=== PATIENT | female | born 1995 | race Hispanic/Latino ===

== ENCOUNTER 2018-07-24 02:34 | Emergency (ER) | payer OTHER ==
[2018-07-24] MEDS ORDERED: NA CHLORIDE 0.9% 1,000 ML ONE (03:04)
[2018-07-24 03:20] LABS: Absolute Lymphocytes (CBC) 2.9 K/uL (0.7-4.9); Absolute Monocytes 0.9 K/uL (0.1-1.3); Basophils % 0.6 % (0-1.3); Eosinophils % 1.6 % (0-4.4); Hematocrit 38.9 % (36.0-45.0); Lymphocytes % 26.6 % (15.3-44.8); MPV 8.1 fL (7.6-11.3); Monocytes % 7.9 % (3.3-12.3); RBC Red Blood Cell Count 4.23 M/uL (3.86-4.86)
[2018-07-24 04:11] LABS: BUN Blood Urea Nitrogen 8 mg/dL (7-18); Bicarbonate 25 mmol/L (21-32); Glucose Level 142 mg/dL (74-106); HCG, Quantitative 39428 mIU/mL (1-3); Potassium 3.2 mmol/L (3.5-5.1); Sodium Level 141 mmol/L (136-145)
[2018-07-24] MEDS ORDERED: NS KCL 20MEQ 1,000 ML IV ONE (04:42)
--- NOTE | 2018-07-24 05:36 | EDPHYS ---
Physician Documentation [facility] Name: Rere Kat Age: 22 yrs Sex: Female : 1995 Arrival Date: 07/24/2018 Time: 02:35 Bed 5 Private MD: ED Physician Benson Acosta HPI: 07/24 02:45 This 22 yrs old Female presents to ER via EMS with complaints of miscarriage. magnolia 02:45 The patient presents with pelvic pain, vaginal bleeding that is. Onset: The magnolia symptoms/episode began/occurred just prior to arrival, this morning. Modifying factors: The symptoms are alleviated by nothing, the symptoms are aggravated by nothing. Associated signs and symptoms: The patient has no apparent associated signs or symptoms. Severity of symptoms: At their worst the symptoms were mild, in the emergency department the symptoms are unchanged. The patient presents to the emergency department with vaginal bleeding. The estimated gestational age is 8 weeks. 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 - Social history:: Smoking status: Patient/guardian denies using tobacco. - Ebola Screening: : No symptoms or risks identified at this time. - Family history:: not pertinent. ROS: 02:45 Constitutional: Negative for fever, chills, and weight loss, Eyes: Negative for injury, magnolia pain, redness, and discharge, ENT: Negative for injury, pain, and discharge, Neck: Negative for injury, pain, and swelling, Cardiovascular: Negative for chest pain, palpitations, and edema, Respiratory: Negative for shortness of breath, cough, wheezing, and pleuritic chest pain, Back: Negative for injury and pain, : Negative for injury, bleeding, discharge, and swelling, MS/Extremity: Negative for injury and deformity, Skin: Negative for injury, rash, and discoloration, Neuro: Negative for headache, weakness, numbness, tingling, and seizure, Psych: Negative for depression, anxiety, suicide ideation, homicidal ideation, and hallucinations, Allergy/Immunology: Negative for hives, rash, and allergies, Endocrine: Negative for neck swelling, polydipsia, polyuria, polyphagia, and marked weight changes, Hematologic/Lymphatic: Negative for swollen nodes, abnormal bleeding, and unusual bruising. 02:45 Abdomen/GI: Positive for abdominal pain, abdominal cramps. Exam: 02:45 Constitutional: This is a well developed, well nourished patient who is awake, alert, magnolia and in no acute distress. Head/Face: Normocephalic, atraumatic. Eyes: Pupils equal round and reactive to light, extra-ocular motions intact. Lids and lashes normal. Conjunctiva and sclera are non-icteric and not injected. Cornea within normal limits. Periorbital areas with no swelling, redness, or edema. ENT: Nares patent. No nasal discharge, no septal abnormalities noted. Tympanic membranes are normal and external auditory canals are clear. Oropharynx with no redness, swelling, or masses, exudates, or evidence of obstruction, uvula midline. Mucous membranes moist. Neck: Trachea midline, no thyromegaly or masses palpated, and no cervical lymphadenopathy. Supple, full range of motion without nuchal rigidity, or vertebral point tenderness. No Meningismus. Chest/axilla: Normal chest wall appearance and motion. Nontender with no deformity. No lesions are appreciated. Cardiovascular: Regular rate and rhythm with a normal S1 and S2. No gallops, murmurs, or rubs. Normal PMI, no JVD. No pulse deficits. Respiratory: Lungs have equal breath sounds bilaterally, clear to auscultation and percussion. No rales, rhonchi or wheezes noted. No increased work of breathing, no retractions or nasal flaring. Back: No spinal tenderness. No costovertebral tenderness. Full range of motion. Skin: Warm, dry with normal turgor. Normal color with no rashes, no lesions, and no evidence of cellulitis. MS/ Extremity: Pulses equal, no cyanosis. Neurovascular intact. Full, normal range of motion. Neuro: Awake and alert, GCS 15, oriented to person, place, time, and situation. Cranial nerves II-XII grossly intact. Motor strength 5/5 in all extremities. Sensory grossly intact. Cerebellar exam normal. Normal gait. Psych: Awake, alert, with orientation to person, place and time. Behavior, mood, and affect are within normal limits. 02:45 Abdomen/GI: Inspection: abdomen appears normal, Bowel sounds: normal, Palpation: moderate abdominal tenderness, in the suprapubic area, Liver: no appreciated palpable abnormalities, Hernia: not appreciated. Vital Signs: 02:39 BP 114 / 79; Pulse 90; Resp 16 S; Temp 98.1(O); Pulse Ox 100% on R/A; Weight 63.5 kg bb (R); Height 5 ft. 3 in. (160.02 cm) (R); Pain 10/10; 03:56 BP 115 / 79; Pulse 79; Resp 16 S; Pulse Ox 100% on R/A; bb 04:39 BP 120 / 72; Pulse 98; Resp 18 S; Pulse Ox 100% on R/A; bb 05:28 BP 107 / 66; Pulse 100; Resp 16 S; Temp 97.7(TE); Pulse Ox 100% on R/A; bb 06:19 BP 100 / 59; Pulse 89; Resp 18 S; Pulse Ox 100% on R/A; bb 02:39 Body Mass Index 24.80 (63.50 kg, 160.02 cm) MDM: 02:37 Patient medically screened. [facility] 02:49 Data reviewed: vital signs, nurses notes, lab test result(s), radiologic studies, [facility] ultrasound. 07/24 02:44 Order name: Quantitative Hcg; Complete Time: 04:17 [facility] 07/24 02:44 Order name: Abo/rh Typing; Complete Time: 04:01 [facility] 07/24 02:44 Order name: Basic Metabolic Panel; Complete Time: 04:17 [facility] 07/24 02:44 Order name: CBC with Diff; Complete Time: 04:01 [facility] 07/24 04:42 Order name: 1St Trimest Single 1St Fetus EDMS 07/24 02:44 Order name: IV Saline Lock; Complete Time: 02:51 [facility] 07/24 02:44 Order name: Labs collected and sent; Complete Time: 02:51 [facility] 07/24 02:44 Order name: NPO; Complete Time: 02:51 [facility] 07/24 04:48 Order name: Pelvic Exam Setup; Complete Time: 04:54 [facility] Administered Medications: 02:52 Drug: NS 0.9% 1000 ml Route: IV; Rate: 1 bolus; Site: left antecubital; bb 04:55 Follow up: IV Status: Completed infusion; IV Intake: 1000ml bb 04:55 Drug: NS 0.9% with KCl 20 mEq/L 1000 ml Route: IV; Rate: 250 ml/hr; Site: left bb antecubital; 06:35 Follow up: IV Status: Order to discontinue infusion; IV Intake: 400ml bb 05:39 CANCELLED (Other Intervention Used): Rocephin - (cefTRIAXone) 1 grams IVPB once over 30 bb mins; (mix in 50 mL NS) 05:51 Drug: Doxycycline 100 mg Route: PO; bb 06:19 Follow up: Response: No adverse reaction bb 05:52 Drug: METHERgine 0.2 mg Route: IM; Site: right gluteus; bb 06:19 Follow up: Response: No adverse reaction bb 05:52 Drug: Rocephin 1 grams Route: IV; Rate: calculated rate; Site: left antecubital; bb 05:57 Follow up: IV Status: Completed infusion; IV Intake: 10ml bb Disposition: 07/24/18 05:34 Discharged to Home. Impression: Pelvic and perineal pain, Hypokalemia, (Induced) termination of with other complications - vaginal bleeding. - Condition is Fair. - Discharge Instructions: Incomplete Miscarriage, Pelvic Pain, Female, Vaginal Bleeding During , First Trimester, First Trimester of , [id number], First Trimester of , Pelvic Rest. - Prescriptions for Vitamin 27- 0.8 mg Oral Tablet - take 1 tablet by ORAL route once daily; 30 tablet. Methergine 0.2 mg Oral tablet - take 1 tablet by ORAL route every 6 hours; 5 tablet. Doxycycline Hyclate 100 mg Oral Tablet - take 1 tablet by ORAL route every 12 hours; 20 tablet. Tylenol- Codeine #3 300-30 mg Oral Tablet - take 2 tablets by ORAL route every 6 hours As needed; 20 tablet. - Medication Reconciliation Form, Thank You Letter, Antibiotic Education, Prescription Opioid Use form. - Follow up: Private Physician; When: 2 - 3 days; Reason: Recheck today's complaints, Continuance of care, Re-evaluation by your physician. Follow up: Leilani Esparza; When: 2 - 3 days; Reason: Recheck today's complaints, Continuance of care, Re-evaluation by your physician. - Problem is new. - Symptoms have improved. Signatures: Dispatcher [employer] Benson Collier MD MD cha Ballard, Brenda, RN RN bb Corrections: (The following items were deleted from the chart) 04:30 02:44 Urine Test ordered. [facility] 04:42 02:44 Transvaginal Ob+US.RAD.BRZ ordered. [facility] EDMA 05:39 05:29 Rocephin - (cefTRIAXone) 1 grams IVPB once over 30 mins; (mix in 50 mL NS) bb ordered. [facility] 06:40 05:34 07/24/2018 05:34 Discharged to Home. Impression: Pelvic and perineal pain; bb Hypokalemia; (Induced) termination of with other complications - vaginal bleeding. Condition is Fair. Discharge Instructions: Pelvic Pain, Female, Threatened Miscarriage, Vaginal Bleeding During , First Trimester, First Trimester of , [id number], First Trimester of , Threatened Miscarriage, [id number], Pelvic Rest. Prescriptions for Vitamin 27-0.8 mg Oral Tablet - take 1 tablet by ORAL route once daily; 30 tablet. and Forms are Medication Reconciliation Form, Thank You Letter, Antibiotic Education, Prescription Opioid Use. Follow up: Private Physician; When: 2 - 3 days; Reason: Recheck today's complaints, Continuance of care, Re-evaluation by your physician. Follow up: Mini Rekhi; When: 2 - 3 days; Reason: Recheck today's complaints, Continuance of care, Re-evaluation by your physician. Problem is new. Symptoms have improved. magnolia
--- NOTE | 2018-07-24 05:36 | ER ---
Nurse's Notes [facility] Name: Rere Kat Age: 22 yrs Sex: Female : 1995 Arrival Date: 07/24/2018 Time: 02:35 Bed 5 Private MD: Diagnosis: Pelvic and perineal pain;Hypokalemia;(Induced) termination of with other complications-vaginal bleeding Presentation: 07/24 02:37 Presenting complaint: EMS states: they were toned out for report of pt having severe bb abdominal pain and vaginal bleeding after taking 2nd dose of misoprostol given to her by [facility] pt last menstrual cycle was 06/01/2018. Transition of care: patient was not received from another setting of care. Onset of symptoms was July 24, 2018. Risk Assessment: Do you want to hurt yourself or someone else? Patient reports no desire to harm self or others. Initial Sepsis Screen: Does the patient meet any 2 criteria? No. Patient's initial sepsis screen is negative. Does the patient have a suspected source of infection? No. Patient's initial sepsis screen is negative. Care prior to arrival: None. 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 - Social history:: Smoking status: Patient/guardian denies using tobacco. - Ebola Screening: : No symptoms or risks identified at this time. - Family history:: not pertinent. Screenin:45 Abuse screen: Denies threats or abuse. Nutritional screening: No deficits noted. bb Tuberculosis screening: No symptoms or risk factors identified. Fall Risk Secondary diagnosis (15 points) impaired mobility, IV access (20 points). Ambulatory Aid- None/Bed Rest/Nurse Assist (0 pts). Gait- Weak (10 pts.). Total Dove Fall Scale indicates High Risk Score (45 or more points). Fall prevention measures have been instituted. Side Rails Up X 2 As available patient and family educated on Fall Prevention Program and Strategies. Assessment: 02:45 General: Appears uncomfortable, ill, Behavior is flat, listless, Reports severe bb abdominal cramping and vaginal bleeding. Pain: Complains of pain in abdomen Pain currently is 10 out of 10 on a pain scale. Neuro: Level of Consciousness is awake, obeys commands, listless, Oriented to person, place, time, situation. Cardiovascular: No deficits noted. Respiratory: Respiratory effort is even, unlabored, Respiratory pattern is regular. GI: Abdomen is round Reports lower abdominal pain, upper abdominal pain, cramping. : No signs and/or symptoms were reported regarding the genitourinary system. Derm: Skin is clammy, Skin is pale, Skin temperature is warm. Musculoskeletal: Circulation, motion, and sensation intact. 03:34 Reassessment: pt had large bowel movement of diarrhea with small amount of blood. bb 03:54 Reassessment: Patient and/or family updated on plan of care and expected duration. Pain bb level reassessed. Patient is alert, oriented x 3, equal unlabored respirations, skin warm/dry/pink. pt states she is feeling a little better, awaiting Ultrasound. 04:36 Reassessment: ultrasound at bedside, pt had small amount bowel movement with chucho fc bright red blood. 05:16 Reassessment: Dr Acosta at bedside for pelvic exam accompanied by Ana hartman.bb 06:18 Reassessment: Patient is alert, oriented x 3, equal unlabored respirations, skin bb warm/dry/pink. pt resting quietly, IV site intact, patent with fluids infusing awaiting ride home prior to discharge pt has called her mother and she is on the way. 06:38 Reassessment: Patient is alert, oriented x 3, equal unlabored respirations, skin bb warm/dry/pink. pt verbalized understanding of and agrees to plan of care discharge instructions given pt assisted to exit via wheelchair. Vital Signs: 02:39 BP 114 / 79; Pulse 90; Resp 16 S; Temp 98.1(O); Pulse Ox 100% on R/A; Weight 63.5 kg bb (R); Height 5 ft. 3 in. (160.02 cm) (R); Pain 10/10; 03:56 BP 115 / 79; Pulse 79; Resp 16 S; Pulse Ox 100% on R/A; bb 04:39 BP 120 / 72; Pulse 98; Resp 18 S; Pulse Ox 100% on R/A; bb 05:28 BP 107 / 66; Pulse 100; Resp 16 S; Temp 97.7(TE); Pulse Ox 100% on R/A; bb 06:19 BP 100 / 59; Pulse 89; Resp 18 S; Pulse Ox 100% on R/A; bb 02:39 Body Mass Index 24.80 (63.50 kg, 160.02 cm) bb ED Course: 02:35 Patient arrived in ED. al2 02:37 Anny Pena RN is Primary Nurse. bb 02:37 Benson Acosta MD is Attending Physician. magnolia 02:39 Triage completed. bb 02:39 Arm band placed on Patient placed in an exam room, on a stretcher, on pulse oximetry. bb 02:45 Patient has correct armband on for positive identification. Placed in gown. Bed in low bb position. Call light in reach. Pulse ox on. NIBP on. Warm blanket given. 02:45 Inserted saline lock: 20 gauge in left antecubital area, using aseptic technique. Blood bb collected. 04:40 Ultrasound completed. Patient tolerated well. aa4 04:43 1St Trimest Single 1St Fetus In Process Unspecified. EDMS 05:27 Assist provider with pelvic exam: Set up pelvic tray. Performed by Benson Acosta MD bb POC sent to pathology, Patient tolerated well. assisted by Ana Wheatley marine services technician. 05:31 Leilani Esparza MD is Referral Physician. magnolia 06:40 IV discontinued, intact, bleeding controlled, No redness/swelling at site. Pressure bb dressing applied. Administered Medications: 02:52 Drug: NS 0.9% 1000 ml Route: IV; Rate: 1 bolus; Site: left antecubital; bb 04:55 Follow up: IV Status: Completed infusion; IV Intake: 1000ml bb 04:55 Drug: NS 0.9% with KCl 20 mEq/L 1000 ml Route: IV; Rate: 250 ml/hr; Site: left bb antecubital; 06:35 Follow up: IV Status: Order to discontinue infusion; IV Intake: 400ml bb 05:39 CANCELLED (Other Intervention Used): Rocephin - (cefTRIAXone) 1 grams IVPB once over 30 bb mins; (mix in 50 mL NS) 05:51 Drug: Doxycycline 100 mg Route: PO; bb 06:19 Follow up: Response: No adverse reaction bb 05:52 Drug: METHERgine 0.2 mg Route: IM; Site: right gluteus; bb 06:19 Follow up: Response: No adverse reaction bb 05:52 Drug: Rocephin 1 grams Route: IV; Rate: calculated rate; Site: left antecubital; bb 05:57 Follow up: IV Status: Completed infusion; IV Intake: 10ml bb Intake: 04:55 IV: 1000ml; Total: 1000ml. bb 05:57 IV: 10ml; Total: 1010ml. bb 06:35 IV: 400ml; Total: 1410ml. bb Outcome: 05:34 Discharge ordered by . magnolia 06:39 Discharged to home via wheelchair, with family. bb 06:39 Condition: stable 06:39 Discharge instructions given to patient, Instructed on discharge instructions, follow up and referral plans. medication usage, Demonstrated understanding of instructions, follow-up care, medications, Prescriptions given X 4. 06:40 Patient left the ED. bb Signatures: Dispatcher [employer] EDMS Benson Acosta MD MD cha Chretien, Felicia RN Anny Tobin RN RN Lupe Yusuf Angelica al2
[2018-07-24] MEDS ORDERED: DOXYCYCLINE 100 MG CAP PO ONE (05:51)
[2018-07-24] MEDS ORDERED: METHYLERGONOVINE 0.2MG/ML AMP IM ONE (05:52)
[2018-07-24] MEDS ORDERED: CEFTRIAXONE/SWI 1gm 1 GM/10 ML SYR ONE (05:52)
--- NOTE | 2018-07-24 11:16 | RAD REPORT ---
EXAM DESCRIPTION: US - 1St Trimest Single 1St Fetus - 07/24/2018 4:42 am CLINICAL HISTORY: Vaginal bleeding, patient provided history of recent medication for termination Preliminary findings provided at the time of the study. COMPARISON: None. TECHNIQUE: Transabdominal pelvic sonography performed. Patient declined endovaginal study. FINDINGS: Uterine size is normal. No intrauterine hematoma. In the lower uterine segment of the endo metrial cavity there is a 7 week 3 day sized gestational sac. pole is seen with a 9 week 2 day crown-rump length. No cardiac activity was identifiable. A 19 millimeter minimally complex right ovarian cyst is present. No adnexal mass. No blood or fluid i n the adnexa or cul-de-sac. Cervical canal is closed. IMPRESSION: Gestational sac containing a 9 week 2 day sized pole is seen in the lower uterine segment of the endometrial cavity. On transabdominal imaging no cardiac activity could be identifiable.
== END 2018-07-24 06:40 | disposition home or self-care (01) ==
LOC: ER 02:34
DX: O04.80 (Induced) termination of pregnancy with unspecified complications (principal); E87.6 Hypokalemia
CPT/HCPCS: 36415; 76801; 80048; 84702; 85025; 86900; 86901; 88305; 96361; 96372; 96374; 99284; J0696; J2210; J7030

== ENCOUNTER 2022-01-20 10:49 | Emergency (ER) | payer OTHER ==
--- NOTE | 2022-01-20 12:24 | RAD REPORT ---
EXAM DESCRIPTION: CT - [id number] - 01/20/2022 11:43 am CLINICAL HISTORY: Trauma, head and neck injury. head injury on concrete, neck pain COMPARISON: No comparisons TECHNIQUE: Axial 5 mm thick images of the head were obtained. Axial 2 mm thick images of the cervical spine were obtained with sagittal and coronal reconstruction images generated and reviewed. All CT scans are performed using dose optimization technique as appropriate and may include automated exposure control or mA/KV adjustment according to patient size. FINDINGS: CT HEAD WITHOUT CONTRAST: No acute hemorrhage, hydrocephalus or extra-axial collection is identified.No areas of brain edema or midline shift. Mild mucosal thickening involves both inferior maxillary antra.The calvarium is intact. CT CERVICAL SPINE WITHOUT CONTRAST: No fracture or subluxation.No prevertebral soft tissues swelling is identified. IMPRESSION: No acute intracranial or cervical spine findings.
--- NOTE | 2022-01-20 13:10 | RAD REPORT ---
EXAM DESCRIPTION: US - OB Complete - 01/20/2022 12:07 pm CLINICAL HISTORY: BLUNT TRAUMA age. COMPARISON: Transvaginal OB dated 08/15/2016 FINDINGS: A single variable presenting gestation is identified. Heart rate normal. The intracranial contents and spine are grossly normal. A normal stomach bubble is noted. A nor mal fluid-filled urinary bladder seen without pelviectasis. The cord appears three-vessel. Four -chamber view of the heart is grossly unremarkable for gestational age. Cervix is closed. measurements are as follows: BPD:6.1 Centimeters 24 weeks 4 days HC:21.8 Centimeters 23 weeks 6 days AC:20.6 Centimeters 25 weeks 1 day HL:4.1 Centimeters 24 weeks 2 days FL:4.3 Centimeters 24 weeks 1 day The estimated gestational age (EGA) is 24 weeks 3 days with an PRESTON of05/09/2022. The placenta is grade 1, posterior in location. No placenta previa. No evidence of placental abruption. Amniotic fluid volume is subjectively normal. The maternal adnexa show no worrisome findings. IMPRESSION: 1. Single, variable gestation with an EGA of 24 weeks 2 days and an PRESTON of the 2. 2. No trauma related abnormalities are seen. 3. Grade 1, posterior placenta. 4. Amniotic fluid volume is subjectively normal.
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
[2022-01-20 13:34] VITALS: TEMP 98.5
[2022-01-20 13:43] VITALS: BP 129/67; O2SAT 98
== END 2022-01-20 13:29 | disposition home or self-care (01) ==
LOC: ER 10:49
DX: O9A.212 Injury, poisoning and certain other consequences of external causes complicating pregnancy, second trimester (principal); S00.83XA Contusion of other part of head, initial encounter; Z3A.24 24 weeks gestation of pregnancy
CPT/HCPCS: 70450; 72125; 76805; 99284

== ENCOUNTER 2022-08-26 15:09 | Emergency (ER) | payer OTHER ==
--- OUTSIDE RECORDS SUMMARY | 2022-08-26 15:17 | XMS REPORT | Continuity of Care Document ---
:1995 Author Organization [facility] t Address [address] [place] [address] Care Team Providers Name Role Phone LATASHA PITT Primary Care Physician Unavailable Magui Ledesma Attending Clinician Unavailable Elizabeth Shaffer Attending Clinician Unavailable LATASHA PITT Attending Clinician Unavailable Gerald Kingston Attending Clinician Unavailable Magui Ledesma Admitting Clinician Unavailable Payers Payer Name Policy Type Policy Number Effective Date Expiration Date S ource Problems This patient has no known problems. Allergies, Adverse Reactions, Alerts Allergy Allergy Status Severity Reaction(s) Onset Inactive Treating Comm ents Source Name Type Date Date Clinician No Known DA Active U 2021-07 [facility]-27 Clear s 00:00: Osman 00 [facility] No Known DA Active U [facility] 8-17 Clear s 00:00: Osman 00 [facility] No Known DA Active U [facility] Allergie 3-19 Clear s 00:00: Osman 00 [facility] No Known DA Active U [facility] 3-19 Clear s 00:00: [facility] NO KNOWN Drug Active [facility] Medications This patient has no known medications. Procedures Procedure Date / Time Performed Performing Clinician Thomas palacios [id number] 2022-05-08 00:00:00 SHELLRA.03 [facility] [id number] 2022-05-08 00:00:00 SHELLRA.03 [facility] [id number] 2021-03-25 00:00:00 SHELLRA.03 [facility] Encounters Start End Encounter Admission Attending Care Care Encounter Source Date/Time Date/Time Type Type Clinicians Facility Department ID 2021-05-29 Outpatient [facility] [id number] [facility] 09:38:07 [id number] [facility] 2022-05-08 2022-05-10 Inpatient JUSTIN Ledesma MONISHACL OBPP [id number] [facility] 16:09:00 12:19:00 Magui 53 [facility] 2022-02-25 2022-02-26 Emergency EM Deena, MONISHACL SHANNA [id number] [facility] 23:47:00 01:27:00 Elizabeth 72 [facility] 2021-10-31 2021-10-31 Outpatient R YOANDY, [facility] [id number] [facility] 13:30:00 13:30:00 LATASHA [id number] [facility] 2021-10-31 2021-10-31 Outpatient Lorelei PITT, [facility] [id number] [facility] 13:30:00 13:30:00 LATASHA [facility] 2021-03-25 2021-03-27 Inpatient JUSTIN Ledesma HCACL OBPP [id number] [facility] 05:56:00 16:25:00 Magui [id number] [facility] 2021-03-25 2021-03-27 Inpatient JUSTIN Ledesma [facility] OBPP [id number] [facility] 05:56:00 16:25:00 Magui 74 [facility] 2021-03-07 2021-03-07 Emergency EM Chazu, MONISHACL VALERY [id number] [facility] 17:36:00 19:45:00 Gerald [id number] [facility] Results Test Description Test Time Test Comments Results Result Comments Source SURGICAL 2022-05-12 13:55:00 Test Item Value Reference Range Interpretation Commsuzanne nts SURGICAL RUN (test DATE: 05/12/22 [place] - LAB PAGE 1 RUN TIME: 1355 Specimen Inquiry RUN USER: INTERFACE code = ABELARDO SR) ENT: JESI SARABIA LOC: HIRO U #: [id number] AGE/SX: 26/F ROOM: [facility] RE05/08/22REG DR: Magui Ledesma MD : 95 BED: 1 DIS: 05/10/22 STATUS: DIS IN TLOC: SPEC #: [id number] RECD: 1 STATUS: VIANNEY REAustin #: [id number] MELVIN: 05/08/22- SUBM DR: Magui Ledesma MD ENTERED: 05/09/22 SP TYPE: SURGICAL OTHR DR: ORDERED: 88463/2, ANATOMIC SPEC PROCEDURES: [id number] (04/13) TISSUES: 2. FALLOPIAN TUBE NOS - BI LAY CLINICAL HISTORY SAME, DELIVERED FINAL DIAGNO SIS Fallopian tube, left, excision: Complete transection. Fallopian tube, right, excision: Compl ete transection. GROSS DESCRIPTION Specimen #1 received in formalin labeled "left fallopian tube " is a fimbriated fallopiantube, 7.5 x 0.9 x 0.7 cm. Topstitcher Lockstitch sections submitted (A). Spec imen #2 received in formalin labeled "right fallopian tube" is a fimbriated fallopiantube, 7. 5 x 0.8 x 0.7 cm. Topstitcher Lockstitch sections submitted (B). Technical component performed at [address] [address] Unless gross only, the diagnosis is based upon microscopic examination.Immunohistochemistry: This test was developed and its performance characteristicsdetermined by this laboratory. It has not been approved nor does it need approvalby the [place] FDA. Appro priate positive and negative controls are reviewed and judgedto be acceptable. This laboratory is certified under the Clinical Laboratory ImprovementAmendments (CLIA-88) as qualified to [facility] high complexity clinical laboratory testing. CLINICAL INFORMATION , R C/S, BILATERAL SALPINGECTOMY --------- Signed SIGNATURE ON FILE Jean Castrosondra 2 [id number] END OF REPORT COMPREHENSIVE METABOLIC [id number] 07:29:00 Test Item Value Reference Range Interpretation Comments SODIUM (test code = NA) 138 mEq/L 134-147 N POTASSIUM (test code = 4.0 mEq/L 3.4-5.0 N K) CHLORIDE (test code = 105 mEq/L 100-108 N CL) CARBON DIOXIDE (test 24 mEq/l 21-33 N code = CO2) ANION GAP (test code = 13 0-20 N GAP) GLUCOSE (test code = 109 mg/dL 70-110 N GLU) BLOOD UREA NITROGEN 8 mg/dL 7-18 N (test code = BUN) GLOMERULAR FILTRATION 192.9 110-120 H Units of measure = RATE (test code = GFR) ml/mi n/1.73 m2 CREATININE (test code = 0.4 mg/dL 0.6-1.3 L CREAT) TOTAL PROTEIN (test 5.0 g/dL 6.4-8.2 L code = PROT) ALBUMIN (test code = 2.50 g/dL 3.4-5.0 L ALB) CALCIUM (test code = 8.8 mg/dL 8.0-10.5 N CA) BILIRUBIN TOTAL (test 0.30 mg/dL 0.0-1.0 N code = BILT) SGOT/AST (test code = 18 IUnit/L 15-37 N AST) SGPT/ALT (test code = 8 IUnit/L 30-65 L ALT) ALKALINE PHOSPHATASE 97 IUnit/L 20-125 N TOTAL (test code = ALKP) CBC W/AUTO [id number] 06:59:00 Test Item Value Reference Range Interpretation Comments WHITE BLOOD CELL (test code = 14.2 x10 3/uL 4.5-11.0 H WBC) RED BLOOD CELL (test code = 3.87 x10 6/uL 3.54-5.02 N RBC) HEMOGLOBIN (test code = HGB) 11.4 g/dL 11.0-15.0 N HEMATOCRIT (test code = HCT) 34.8 % 33.0-45.0 N MEAN CELL VOLUME (test code = 89.9 fL 81.0-99.0 N MCV) MEAN CELL HGB (test code = 29.5 pg 27.0-33.0 N MCH) MEAN CELL HGB CONCETRATION 32.8 g/dL 33.0-37.0 L (test code = MCHC) RED CELL DISTRIBUTION WIDTH CV 13.5 % 11.5-14.5 N (test code = RDW) RED CELL DISTRIBUTION WIDTH SD 44.0 fL 37.0-54.0 N (test code = RDW-SD) PLATELET COUNT (test code = 272 x10 3/uL 150-400 N PLT) MEAN PLATELET VOLUME (test 10.2 fL 7.0-9.0 H code = MPV) NEUTROPHIL % (test code = NT%) 82.6 % 56.0-77.0 H IMMATURE GRANULOCYTE % (test 0.6 % 0.0-2.0 N code = IG%) LYMPHOCYTE % (test code = LY%) 9.5 % 14.0-32.0 L MONOCYTE % (test code = MO%) 7.0 % 4.8-9.0 N EOSINOPHIL % (test code = EO%) 0.1 % 0.3-3.7 L BASOPHIL % (test code = BA%) 0.2 % 0.0-2.0 N NUCLEATED RBC % (test code = 0.0 % 0-0 N NRBC%) NEUTROPHIL # (test code = NT#) 11.74 x10 3/uL 2.0-7.6 H IMMATURE GRANULOCYTE # (test 0.09 x10 3/uL 0.00-0.03 H code = IG#) LYMPHOCYTE # (test code = LY#) 1.35 x10 3/uL 1.0-3.8 N MONOCYTE # (test code = MO#) 0.99 x10 3/uL 0.1-0.8 H EOSINOPHIL # (test code = EO#) 0.01 x10 3/uL 0.0-0.2 N BASOPHIL # (test code = BA#) 0.03 x10 3/uL 0.0-0.2 N NUCLEATED RBC # (test code = 0.00 x10 3/uL 0.0-0.1 N NRBC#) MANUAL DIFF REQUIRED (test NO code = MDIFF) RAPID PLASMA [id number] 21:17:00 Test Item Value Reference Range Interpretation Comments RAPID PLASMA REAGIN (test code = NONREACTIVE NONREACTIVE RPR) AG HEPATITIS B [id number] 21:17:00 Test Item Value Reference Range Interpretation Comments AG HEPATITIS B SURFACE NON REACTIVE INDEX NonReactive (test code = HBSAG) AB HIV 1 21:17:00 Test Item Value Reference Range Interpretation Comments AB HIV 1 2 (test code = [id number]) Nonreactive Nonreactive [id number] 14:41:00 Test Item Value Reference Range Interpretation Comments CREATININE (test code = CREAT) 0.4 mg/dL 0.6-1.3 L CBC W/AUTO [id number] 14:31:00 Test Item Value Reference Range Interpretation Comments WHITE BLOOD CELL (test code = 9.2 x10 3/uL 4.5-11.0 WBC) RED BLOOD CELL (test code = 4.30 x10 6/uL 3.54-5.02 N RBC) HEMOGLOBIN (test code = HGB) 12.7 g/dL 11.0-15.0 N HEMATOCRIT (test code = HCT) 38.7 % 33.0-45.0 N MEAN CELL VOLUME (test code = 90.0 fL 81.0-99.0 N MCV) MEAN CELL HGB (test code = MCH) 29.5 pg 27.0-33.0 N MEAN CELL HGB CONCETRATION 32.8 g/dL 33.0-37.0 L (test code = MCHC) RED CELL DISTRIBUTION WIDTH CV 13.5 % 11.5-14.5 N (test code = RDW) RED CELL DISTRIBUTION WIDTH SD 44.5 fL 37.0-54.0 N (test code = RDW-SD) PLATELET COUNT (test code = 307 x10 3/uL 150-400 N PLT) MEAN PLATELET VOLUME (test code 9.6 fL 7.0-9.0 H = MPV) NEUTROPHIL % (test code = NT%) 69.1 % 56.0-77.0 N IMMATURE GRANULOCYTE % (test 0.9 % 0.0-2.0 N code = IG%) LYMPHOCYTE % (test code = LY%) 17.6 % 14.0-32.0 N MONOCYTE % (test code = MO%) 11.1 % 4.8-9.0 H EOSINOPHIL % (test code = EO%) 0.9 % 0.3-3.7 N BASOPHIL % (test code = BA%) 0.4 % 0.0-2.0 N NUCLEATED RBC % (test code = 0.0 % 0-0 N NRBC%) NEUTROPHIL # (test code = NT#) 6.39 x10 3/uL 2.0-7.6 N IMMATURE GRANULOCYTE # (test 0.08 x10 3/uL 0.00-0.03 H code = IG#) LYMPHOCYTE # (test code = LY#) 1.62 x10 3/uL 1.0-3.8 N MONOCYTE # (test code = MO#) 1.02 x10 3/uL 0.1-0.8 H EOSINOPHIL # (test code = EO#) 0.08 x10 3/uL 0.0-0.2 N BASOPHIL # (test code = BA#) 0.04 x10 3/uL 0.0-0.2 N NUCLEATED RBC # (test code = 0.00 x10 3/uL 0.0-0.1 N NRBC#) MANUAL DIFF REQUIRED (test code NO = MDIFF) URINALYSIS [id number] 01:01:00 Test Item Value Reference Range Interpretation Comments UA COLOR (test code = COLU) YELLOW YEL/STRAW UA APPEARANCE (test code = SL CLOUDY CLEAR A APPU) UA GLUCOSE DIPSTICK (test code NEGATIVE NEGATIVE = DGLUU) UA BILIRUBIN DIPSTICK (test NEGATIVE NEGATIVE code = BILU) UA KETONE DIPSTICK (test code 1+ NEGATIVE A = KETU) UA SPECIFIC GRAVITY (test code 1.020 1.005-1.030 N = SGU) UA BLOOD DIPSTICK (test code = NEGATIVE NEGATIVE CLAUDY) UA PH DIPSTICK (test code = 6.0 5.0-7.0 N MADHU) UA PROTEIN DIPSTICK (test code 2+ NEGATIVE A = PROU) UA UROBILINIOGEN DIPSTICK 0.2 mg/dL 0.2-1.0 (test code = URO) UA NITRITE DIPSTICK (test code NEGATIVE NEGATIVE = CARLOS ENRIQUE) UA LEUKOCYTE ESTERASE DIPSTICK NEGATIVE NEGATIVE (test code = LEUU) UA RBC (test code = RBCU) 4-10 RBC/HPF 0-3 UA WBC NO REFLEX (test code = 4-9 WBC/HPF 0-3 A WBCUCL) UA BACTERIA (test code = BACU) NONE SEEN /HPF NONE SEEN UA SQUAMOUS CELLS (test code = 6-10 /HPF NONE SEEN A SQU) UA MUCUS (test code = MUCU) 3+ /LPF NONE SEEN A COMPREHENSIVE METABOLIC [id number] 08:31:00 Test Item Value Reference Range Interpretation Comments SODIUM (test code = NA) 138 mEq/L 134-147 N POTASSIUM (test code = 3.8 mEq/L 3.4-5.0 N K) CHLORIDE (test code = 107 mEq/L 100-108 N CL) CARBON DIOXIDE (test 23 mEq/l 21-33 N code = CO2) ANION GAP (test code = 12 0-20 N GAP) GLUCOSE (test code = 67 mg/dL 70-110 L GLU) BLOOD UREA NITROGEN < 5 mg/dL 7-18 L (test code = BUN) GLOMERULAR FILTRATION 194.5 110-120 H Units of measure = RATE (test code = GFR) ml/mi n/1.73 m2 CREATININE (test code = 0.4 mg/dL 0.6-1.3 L CREAT) TOTAL PROTEIN (test 4.8 g/dL 6.4-8.2 L code = PROT) ALBUMIN (test code = 2.20 g/dL 3.4-5.0 L ALB) CALCIUM (test code = 8.9 mg/dL 8.0-10.5 N CA) BILIRUBIN TOTAL (test 0.30 mg/dL 0.0-1.0 N code = BILT) SGOT/AST (test code = 19 IUnit/L 15-37 N AST) SGPT/ALT (test code = < 7 IUnit/L 30-65 L ALT) ALKALINE PHOSPHATASE 78 IUnit/L 20-125 N TOTAL (test code = ALKP) CBC W/AUTO [id number] 07:52:00 Test Item Value Reference Range Interpretation Comments WHITE BLOOD CELL (test code = 15.5 x10 3/uL 4.5-11.0 H WBC) RED BLOOD CELL (test code = 3.42 x10 6/uL 3.54-5.02 L RBC) HEMOGLOBIN (test code = HGB) 10.1 g/dL 11.0-15.0 L HEMATOCRIT (test code = HCT) 31.5 % 33.0-45.0 L MEAN CELL VOLUME (test code = 92.1 fL 81.0-99.0 N MCV) MEAN CELL HGB (test code = 29.5 pg 27.0-33.0 N MCH) MEAN CELL HGB CONCETRATION 32.1 g/dL 33.0-37.0 L (test code = MCHC) RED CELL DISTRIBUTION WIDTH CV 13.3 % 11.5-14.5 N (test code = RDW) RED CELL DISTRIBUTION WIDTH SD 45.0 fL 37.0-54.0 N (test code = RDW-SD) PLATELET COUNT (test code = 309 x10 3/uL 150-400 N PLT) MEAN PLATELET VOLUME (test 9.8 fL 7.0-9.0 H code = MPV) NEUTROPHIL % (test code = NT%) 74.6 % 56.0-77.0 N IMMATURE GRANULOCYTE % (test 0.6 % 0.0-2.0 N code = IG%) LYMPHOCYTE % (test code = LY%) 14.4 % 14.0-32.0 N MONOCYTE % (test code = MO%) 9.9 % 4.8-9.0 H EOSINOPHIL % (test code = EO%) 0.3 % 0.3-3.7 N BASOPHIL % (test code = BA%) 0.2 % 0.0-2.0 N NUCLEATED RBC % (test code = 0.0 % 0-0 N NRBC%) NEUTROPHIL # (test code = NT#) 11.58 x10 3/uL 2.0-7.6 H IMMATURE GRANULOCYTE # (test 0.09 x10 3/uL 0.00-0.03 H code = IG#) LYMPHOCYTE # (test code = LY#) 2.23 x10 3/uL 1.0-3.8 N MONOCYTE # (test code = MO#) 1.54 x10 3/uL 0.1-0.8 H EOSINOPHIL # (test code = EO#) 0.04 x10 3/uL 0.0-0.2 N BASOPHIL # (test code = BA#) 0.03 x10 3/uL 0.0-0.2 N NUCLEATED RBC # (test code = 0.00 x10 3/uL 0.0-0.1 N NRBC#) MANUAL DIFF REQUIRED (test NO code = MDIFF) RAPID PLASMA [id number] 11:15:00 Test Item Value Reference Range Interpretation Comments RAPID PLASMA REAGIN (test code = NONREACTIVE NONREACTIVE RPR) AG HEPATITIS B [id number] 11:15:00 Test Item Value Reference Range Interpretation Comments AG HEPATITIS B SURFACE NON REACTIVE INDEX NonReactive (test code = HBSAG) AB HIV 1 11:15:00 Test Item Value Reference Range Interpretation Comments AB HIV 1 2 (test code = [id number]) Nonreactive Nonreactive Novel Coronavirus 2019 [id number] 10:50:00 Test Item Value Reference Range Interpretation Comments Novel Coronavirus Negative Negative Positive r esults are 2019 Inhouse (test indicativ e of the presence code = COVNONPUI) ofSARS-CoV -2 RNA, clinical correlation wit h patient historyand othe r diagnostic info rmation is necessary to determinepatien t infection status. Positiv e results do not rule out bacterial infection or co -infection with other viru ses. Negative result s do not preclude SARS-C oV-2 infection andsh ould not be used as the leydi e basis for patient managementdecis ions. Negative result s must be combined with otherclinical observations, p atient history, and epidemiological information . Detection of SARS-CoV-2 RNA may be affe cted bysample collec tion methods, storag e conditions, and /or stageof infection. Kathy l RNA mutations, vacc inations, antiviraltherap eutics, antibiotics, chemotherapeuti c orimmunosuppres nely drugs have not been e valuated for effectson d etection. Results are for the identification of SARS-CoV-2 RNA usingthe Rao M2000 Sy stem under the FDA Emergen cy UseAuthorizatio n. The testing is perf ormed by personneltraine d in the procedures for the Rao M2000 molecular diagnostic SARS-CoV-2 assa y in vitro. RAPID PLASMA [id number] 13:04:00 Test Item Value Reference Range Interpretation Comments RAPID PLASMA REAGIN (test code = RPR) NONREACTIVE AG HEPATITIS B [id number] 13:04:00 Test Item Value Reference Range Interpretation Comments AG HEPATITIS B SURFACE NON REACTIVE INDEX NonReactive (test code = HBSAG) AB HIV 1 13:04:00 Test Item Value Reference Range Interpretation Comments AB HIV 1 2 (test code = [id number]) Nonreactive Nonreactive [id number] 12:22:00 Test Item Value Reference Range Interpretation Comments CREATININE (test code = CREAT) 0.4 mg/dL 0.6-1.3 L CBC W/AUTO [id number] 12:06:00 Test Item Value Reference Range Interpretation Comments WHITE BLOOD CELL (test code = 10.0 x10 3/uL 4.5-11.0 N WBC) RED BLOOD CELL (test code = 4.06 x10 6/uL 3.54-5.02 N RBC) HEMOGLOBIN (test code = HGB) 12.0 g/dL 11.0-15.0 N HEMATOCRIT (test code = HCT) 36.5 % 33.0-45.0 N MEAN CELL VOLUME (test code = 89.9 fL 81.0-99.0 N MCV) MEAN CELL HGB (test code = MCH) 29.6 pg 27.0-33.0 N MEAN CELL HGB CONCETRATION 32.9 g/dL 33.0-37.0 L (test code = MCHC) RED CELL DISTRIBUTION WIDTH CV 13.1 % 11.5-14.5 N (test code = RDW) RED CELL DISTRIBUTION WIDTH SD 43.2 fL 37.0-54.0 N (test code = RDW-SD) PLATELET COUNT (test code = 341 x10 3/uL 150-400 N PLT) MEAN PLATELET VOLUME (test code 9.6 fL 7.0-9.0 H = MPV) NEUTROPHIL % (test code = NT%) 72.2 % 56.0-77.0 N IMMATURE GRANULOCYTE % (test 1.7 % 0.0-2.0 N code = IG%) LYMPHOCYTE % (test code = LY%) 16.0 % 14.0-32.0 N MONOCYTE % (test code = MO%) 8.4 % 4.8-9.0 N EOSINOPHIL % (test code = EO%) 1.1 % 0.3-3.7 N BASOPHIL % (test code = BA%) 0.6 % 0.0-2.0 N NUCLEATED RBC % (test code = 0.0 % 0-0 N NRBC%) NEUTROPHIL # (test code = NT#) 7.18 x10 3/uL 2.0-7.6 N IMMATURE GRANULOCYTE # (test 0.17 x10 3/uL 0.00-0.03 H code = IG#) LYMPHOCYTE # (test code = LY#) 1.59 x10 3/uL 1.0-3.8 N MONOCYTE # (test code = MO#) 0.84 x10 3/uL 0.1-0.8 H EOSINOPHIL # (test code = EO#) 0.11 x10 3/uL 0.0-0.2 N BASOPHIL # (test code = BA#) 0.06 x10 3/uL 0.0-0.2 N NUCLEATED RBC # (test code = 0.00 x10 3/uL 0.0-0.1 N NRBC#) MANUAL DIFF REQUIRED (test code NO = MDIFF) UA RFLX MICR CULT IF [id number] 19:01:00 Test Item Value Reference Range Interpretation Comments UA COLOR (test code = COLU) YELLOW YEL/STRAW UA APPEARANCE (test code = SL CLOUDY CLEAR APPU) UA GLUCOSE DIPSTICK (test code NEGATIVE NEGATIVE = DGLUU) UA BILIRUBIN DIPSTICK (test NEGATIVE NEGATIVE code = BILU) UA KETONE DIPSTICK (test code NEGATIVE NEGATIVE = KETU) UA SPECIFIC GRAVITY (test code 1.005 1.005-1.030 N = SGU) UA BLOOD DIPSTICK (test code = NEGATIVE NEGATIVE CLAUDY) UA PH DIPSTICK (test code = 7.0 5.0-7.0 N MADHU) UA PROTEIN DIPSTICK (test code NEGATIVE NEGATIVE = PROU) UA UROBILINIOGEN DIPSTICK 0.2 mg/dL 0.2-1.0 (test code = URO) UA NITRITE DIPSTICK (test code NEGATIVE NEGATIVE = CARLOS ENRIQUE) UA LEUKOCYTE ESTERASE DIPSTICK TRACE NEGATIVE A (test code = LEUU) UA WBC (test code = WBCU) 4-9 WBC/HPF 0-3 A UA RBC (test code = RBCU) 0-3 RBC/HPF 0-3 UA WBC NO REFLEX (test code = 4-9 WBC/HPF 0-3 A WBCUCL) UA BACTERIA (test code = BACU) NONE SEEN /HPF NONE SEEN UA SQUAMOUS CELLS (test code = 26-35 /HPF NONE SEEN A SQU) UA MUCUS (test code = MUCU) TRACE /LPF NONE SEEN Indication for culture: RiskForSepsis-no oth srcSpecimen Description: CLEAN CATCHCOVID 19 INHOUSE [id number] 19:01:00 Test Item Value Reference Range Interpretation Comments COVID 19 INHOUSE Negative Negative A negative result is AG (test code = presumptive and should be [id number]) confirmedwith a n FDA authorized mole cular assay, if necessary fo rpatient management.A po sitive result does not rule out co-infections w ithother pathogens.This test detects both viable (li ve) and non-viable,SARS -CoV, and SARS-CoV-2. Az t performance dep ends on theamount of vi lauren (antigen) in e sample.This az t has not been FDA cleare d or approved; the t est hasbeen authorized by [facility] under an Emergency Use Authorization(E UA) for use by laboratories certified under the CLIA thatmeet the requirements to perform moderate, high or waivedcomplexit y tests. - XR CHEST 1 [id number] 00:00:00 [facility] : 1995 Sex: F FAX: Magui Felix MD [phone] [place]: St: [facility] FAX: Italia Amanda APR [phone] ------- Name: CORNELLJESI [facility] : 1995 Age/S: 25/F [address] [place] [address] Unit #: [id number] Loc: [facility] [address] Phys: Italia Amanda Acct: [id number] Dis Date: Status: REG ER PHONE #: [phone] Exam Date: 03/07/2021 1830 FAX #: [phone] Reason: cough, congestion EXAMS: CPT CODE: [id number] XR CHEST 1 V [id number] PROCEDURE INFORMATION: Exam: XR Chest Exam date and time: 03/07/2021 6:21 PM Age: 25 years old Clinical indication: Cough; Additional info: Cough, congestion TECHNIQUE: Imaging protocol: XR of the chest. Views: 1 view. COMPARISON: No relevant prior studies available. FINDINGS: Lungs: Subtle bibasilar prominence of interstitial lung markings with scattered ill- defined airspace opacities. Pleural spaces: No pleural effusion. No pneumothorax. Heart/Mediastinum: Heart size is withinnormal limits. Bones/joints: No acute osseous abnormalities. IMPRESSION: Nonspecific findings may represent early atypical pneumonia. at 1854 Reported and signed by: Jose Ortega M.D. CC: Magui Ledesma MD; Italia Amanda Technologist: STAN Benitez) Trnscdanielito Date/Time/By: 03/07/2021 (1853) : By: [email or web address] Orig Print D/T: S: 03/07/2021 (1854) PAGE 1 Signed Report
[2022-08-26 17:27] LABS: Urine Blood Negative (Negative); Urine Glucose Negative (Negative); Urine Protein 1+ (Negative); Urine pH 6.5 (5.0-7.0)
[2022-08-26] MEDS ORDERED: LORazepam 2 MG/ML VIAL ONE (17:35)
[2022-08-26 17:37] LABS: Absolute Lymphocytes (CBC) 1.7 K/uL (0.7-4.9); Lymphocytes % 20.8 % (15.3-44.8); MCV 88.8 fL (80-100); MPV 7.6 fL (7.6-11.3); RBC Red Blood Cell Count 4.62 M/uL (3.86-4.86)
[2022-08-26 17:41] LABS: Protime INR 0.96
[2022-08-26 17:44] LABS: Barbiturates NEGATIVE (NEGATIVE); Benzodiazepines NEGATIVE (NEGATIVE); Cocaine NEGATIVE (NEGATIVE); METHAMPHETAM POSITIVE (NEGATIVE); Methadone NEGATIVE (NEGATIVE); Opiates NEGATIVE (NEGATIVE); Phencyclidine NEGATIVE (NEGATIVE); THC Cannibis POSITIVE (NEGATIVE)
[2022-08-26 18:03] LABS: ALT/SGPT 28 U/L (13-56); AST/SGOT 16 U/L (15-37); Albumin 3.9 g/dL (3.4-5.0); Alkaline Phosphatase 71 U/L (45-117); BUN Blood Urea Nitrogen 12 mg/dL (7-18); Bicarbonate 26 mmol/L (21-32); Bilirubin Total 0.2 mg/dL (0.2-1.0); Glomerular Filtration Rate 96 ml/min (=/>90); Glucose Level 99 mg/dL (74-106); Potassium 3.6 mmol/L (3.5-5.1); Protein, Total 7.4 g/dL (6.4-8.2); Sodium Level 138 mmol/L (136-145)
[2022-08-26 18:11] LABS: Bilirubin Direct < 0.1 mg/dL (0-0.2)
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
--- NOTE | 2022-08-27 07:14 | EDPHYS ---
Physician Documentation [facility] Name: Rere Kat Age: 27 yrs Sex: Female : 1995 Arrival Date: 08/26/2022 Time: 15:11 Bed 17 Private MD: ED Physician Benson Acosta HPI: 08/26 15:32 This 27 yrs old Female presents to ER via Ambulatory with complaints of Mental cp evaluation. 15:32 The patient presents to the emergency department with depression, over a , father cp of child. Onset: The symptoms/episode began/occurred gradually. Past psychiatric history: Prior diagnosis: depression, Psychiatric medications include: Sertraline . 15:32 Associated signs and symptoms: The patient has no apparent associated signs or symptoms.cp 15:32 Patient reports thoughts of "not wanting to be here" but denies specific plan for cp suicide. 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 Flu vaccine is not up to date. - Social history:: Smoking status: Patient reports the use of cigarette tobacco products, denies chronic smoking, but will smoke occasionally. ROS: 15:35 Constitutional: Negative for body aches, chills, fever, poor PO intake. cp 15:35 Eyes: Negative for injury, pain, redness, and discharge. cp 15:35 ENT: Negative for drainage from ear(s), ear pain, sore throat, difficulty swallowing, difficulty handling secretions. 15:35 Cardiovascular: Negative for chest pain, edema, palpitations. 15:35 Respiratory: Negative for cough, shortness of breath, wheezing. 15:35 Abdomen/GI: Negative for abdominal pain, nausea, vomiting, and diarrhea. 15:35 Neuro: Negative for altered mental status, dizziness, headache, weakness. 15:35 Psych: Positive for anxiety, depression, suicidal ideation, Negative for auditory hallucinations, visual hallucinations, homicidal ideation, suicide gesture. 15:35 All other systems are negative. Exam: 15:40 Constitutional: The patient appears in no acute distress, alert, awake, non-toxic, well cp developed, well nourished, anxious. 15:40 Head/Face: Normocephalic, atraumatic. cp 15:40 Eyes: Periorbital structures: appear normal, Conjunctiva: normal, no exudate, no injection, Sclera: no appreciated abnormality, Lids and lashes: appear normal, bilaterally. 15:40 ENT: External ear(s): are unremarkable, Nose: is normal, Mouth: Lips: moist, Oral mucosa: moist, Posterior pharynx: is normal, airway is patent, no erythema, no exudate. 15:40 Chest/axilla: Inspection: normal. 15:40 Cardiovascular: Rate: tachycardic, Rhythm: regular, Edema: is not appreciated, JVD: is cp not appreciated. 15:40 Respiratory: the patient does not display signs of respiratory distress, Respirations: cp normal, no use of accessory muscles, labored breathing, is not present, Breath sounds: are clear throughout, no decreased breath sounds, no stridor, no wheezing. 15:40 Abdomen/GI: Inspection: abdomen appears normal, Palpation: abdomen is soft and non-tender, in all quadrants. 15:40 Back: pain, is absent, ROM is normal. 15:40 Neuro: Orientation: to person, place \\T\\ time. Mentation: is normal, Motor: moves all fours, strength is normal. 16:55 ECG was reviewed by the Attending Physician. cp Vital Signs: 15:20 BP 130 / 99; Pulse 119; Resp 21; Temp 98.9; Pulse Ox 100% ; Weight 72.57 kg; Height 5 ap3 ft. 3 in. (160.02 cm); 19:33 BP 106 / 63; Pulse 64; Resp 16; Pulse Ox 100% on R/A; mb9 08/27 07:51 BP 114 / 79; Pulse 76; Resp 16; Temp 98.6; Pulse Ox 100% on R/A; Pain 0/10; em1 08/26 15:20 Body Mass Index 28.34 (72.57 kg, 160.02 cm) ap3 MDM: 08/26 15:35 Patient medically screened. cp 16:00 Differential diagnosis: acute psychotic break, depression, psychosis secondary to cp non-compliance, post depression. 19:00 Data reviewed: vital signs, nurses notes, lab test result(s), EKG, and as a result, I cp will consult [facility] for evaluation. 08/27 07:18 ED course: DEPRESSION, NOT SUICIDAL, NO PLANS TO HARM SELF. [facility] 08/26 15:34 Order name: Acetaminophen cp 08/26 15:34 Order name: Basic Metabolic Panel cp 08/26 15:34 Order name: CBC with Diff cp 08/26 15:34 Order name: ETOH Level cp 08/26 15:34 Order name: Hepatic Function cp 08/26 15:34 Order name: PT-INR cp 08/26 15:34 Order name: Ptt, Activated cp 08/26 15:34 Order name: Salicylate cp 08/26 15:34 Order name: Urine Drug Screen cp 08/26 17:27 Order name: Urine Dipstick-Ancillary; Complete Time: 18:10 EDMS 08/26 18:10 Interpretation: Normal except: UPROT 1+; UESTR Trace. cp 08/26 17:41 Order name: Protime (+INR); Complete Time: 18:10 EDMS 08/26 17:41 Order name: PTT, Activated Partial Thromb; Complete Time: 18:10 EDMS 08/26 17:44 Order name: Urine --Ancillary (enter results) bd 08/26 17:45 Order name: Urine Drug Screen; Complete Time: 18:10 EDMS 08/26 18:11 Interpretation: Normal except: METHAMPHETAMINE POSITIVE; THC POSITIVE. cp 08/26 15:34 Order name: EKG; Complete Time: 15:35 cp 08/26 15:34 Order name: EKG - Nurse/Tech; Complete Time: 16:58 cp 08/26 15:34 Order name: IV Saline Lock; Complete Time: 17:28 cp 08/26 15:34 Order name: Labs collected and sent; Complete Time: 17:28 cp 08/26 15:34 Order name: Suicide Precautions; Complete Time: 16:15 cp 08/26 16:50 Order name: Diet Finger Food; Complete Time: 16:51 bc6 08/26 17:51 Order name: Alcohol Serum/Plasma; Complete Time: 18:10 EDMS 08/26 18:56 Interpretation: Reviewed. cp 08/26 17:53 Order name: CBC with Automated Diff; Complete Time: 18:10 EDMS 08/26 18:11 Interpretation: Reviewed. cp 08/26 18:11 Order name: Basic Metabolic Panel; Complete Time: 18:55 EDMS 08/26 18:55 Interpretation: Reviewed. cp 08/26 18:11 Order name: Liver (Hepatic) Function; Complete Time: 18:55 EDMS 08/26 18:56 Interpretation: Reviewed. cp 08/26 18:11 Order name: Acetaminophen Level; Complete Time: 18:55 EDMS 08/26 18:55 Interpretation: Reviewed. cp 08/26 18:24 Order name: Salicylates Level; Complete Time: 18:55 EDMS 08/26 18:55 Interpretation: Within normal limits: WILLIAN < 2.2. cp 08/26 18:37 Order name: Urine --Ancillary; Complete Time: 18:55 EDMS 08/26 18:56 Interpretation: Reviewed. cp 08/27 07:10 Order name: Diet Regular; Complete Time: 07:11 bd 08/26 15:34 Order name: Suicide Screening ([place]); Complete Time: 17:28 cp 08/26 15:34 Order name: Urine Dipstick-Ancillary (obtain specimen); Complete Time: 17:28 cp 08/26 15:34 Order name: Urine Test (obtain specimen); Complete Time: 17:28 cp EC/14 16:55 Rate is 70 beats/min. Rhythm is regular. CT interval is normal. QRS interval is normal. cp QT interval is normal. T waves are Inverted in lead aVR. Interpreted by me. Reviewed by me. Administered Medications: 17:35 Drug: Ativan (LORazepam) 1 mg Route: PO; mb9 08/27 08:15 Follow up: Response: No adverse reaction db 08:15 Not Given (Patient Refused): Zoloft 50 mg PO once db Disposition: 07:17 Co-signature as Attending Physician, Benson Acosta MD I agree with the assessment and [facility] plan of care. Disposition Summary: 08/27/22 07:13 Discharge Ordered Location: Home [facility] Problem: new [facility] Symptoms: have improved [facility] Condition: Stable [facility] Diagnosis - Adjustment disorder with depressed mood magn[place] - Adjustment disorder with mixed anxiety and depressed mood magn[facility] Followup: [facility] - With: Private Physician - When: 2 - 3 days - Reason: Recheck today's complaints, Continuance of care, Re-evaluation by your physician Followup: [facility] - With: Burt Rich MD - When: 2 - 3 days - Reason: Recheck today's complaints, Continuance of care, Re-evaluation by your physician Discharge Instructions: - Adjustment Disorder, Adult [facility] - Major Depressive Disorder, Adult, [id number] - Discharge Summary Sheet mb9 - Managing Depression, Adult [facility] Forms: - Medication Reconciliation Form [facility] - SBAR form mb9 - Thank You Letter [facility] - Antibiotic Education [facility] - Prescription Opioid Use [facility] Prescriptions: - Zoloft 50 mg Oral Tablet - take 1 tablet by ORAL route once daily; 20 tablet; Refills: 0, Product [facility] Selection Permitted Signatures: Dispatcher [employer] EDBenson Mederos MD MD cha Page, Corey, PA PA cp Prokisch, Amanda RN RN ap3 Delaney Delgado RN RN mb9 Asia Jean RN db Corrections: (The following items were deleted from the chart) 08/26 15:31 15:30 Home Meds: Oral; ap3 ap3
[2022-08-27] MEDS ORDERED: SERTRALINE HCL 50 MG TAB PO ONE (08:00)
[2022-08-27 08:27] VITALS: O2SAT 100
[2022-08-27 08:53] VITALS: BP 114/79; TEMP 98.6
--- NOTE | 2022-08-27 12:59 | EKG ---
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
== END 2022-08-27 08:16 | disposition home or self-care (01) ==
LOC: ER 15:09
DX: F43.23 Adjustment disorder with mixed anxiety and depressed mood (principal); F17.210 Nicotine dependence, cigarettes, uncomplicated
CPT/HCPCS: 85025; 80048; 36415; 81025; 85610; 80076; 85730; 81003; 80307; G0480 ×3; 93005